=== PATIENT | female | born 1975 | race Caucasian/White ===

== ENCOUNTER → 2016-10-10 | Outpatient (CLI) | payer OTHER ==
--- NOTE | 2016-10-11 15:07 | MAMMOGRAPHY REPORT ---
BILATERAL DIGITAL DIAGNOSTIC MAMMOGRAM TOMOSYNTHESIS WITH CAD AND TARGETED BILATERAL ULTRASOUND: 10/10 CLINICAL HISTORY: 41-year-old woman presents with a new palpable lump in the lower inner quadrant of the left breast. Also bilateral screening exam. TECHNIQUE: Bilateral CC and MLO 2-D digital and tomosynthesis images, spot magnification CC and ML v iews of each breast were obtained. Current study was also evaluated with a Computer Aided Detection (CAD) system. COMPARISON: Comparison is made to exam dated: 08/24/2008 mammogram. BREAST COMPOSITION: The tissue of both breasts is heterogeneously dense, which may obscure small ma sses. FINDINGS: A triangle skin palpable marker overlies a lower inner quadrant of the left breast, denoti ng the new palpable lump pointed out by the patient. In the area of concern, there is a new ovoid d ense mass with indistinct and obscured borders. It measures approximately 2.3 x 1.5 x 1.4 cm. Near the anterior inferior aspect of this mass there are clustered microcalcifications for which additio nal spot magnification views were obtained. With spot magnification, there is a cluster of amorphou s microcalcifications measuring 9 mm in maximum dimension. It is unclear if the calcifications are associated with a mass or simply located adjacent to the mass. They are new comparing to the prior 2008 mammogram. No other suspicious mass, focal area of architectural distortion or other microcalc ifications are identified within the left breast. There is a 9 mm reniform mass with feeding vessel in the upper outer quadrant of the left breast for which additional sonographic characterization wa s performed. There is a 7 mm nodular asymmetry with 2 associated punctate calcifications in the upper outer poste rior right breast. Additional spot magnification views were performed in this area and the nodular asymmetry effaces. There are a few other punctate microcalcifications scattered in the right breast . No suspicious grouping or cluster is currently identified. No suspicious mass or focal area of a rchitectural distortion. Targeted ultrasound was performed in the area of palpable lump pointed out by the patient (in the 9: 00 left breast, 2 cm from the nipple). In the area of concern, there is a lobulated, partially circ umscribed hypoechoic solid-appearing mass that measures 17.8 x 11.2 x 12.0 mm. There is an adjacent /abutting lobulated hypoechoic mass measuring 8.5 x 4.3 x 6.4 mm. In the left 2:00 breast, 6 cm fro m the nipple, a morphologically normal lymph node is seen with a thin cortex measuring 1.4 mm. No s uspicious left axillary lymphadenopathy is identified. In the right 8:00 breast, there is a lobulated anechoic benign simple cyst measuring 7.4 mm. The 10 :00 right breast, 1 cm from the nipple, there is a macrolobulated isoechoic solid-appearing mass kaitlyn suring 9.3 x 5.3 x 10.5 mm, with 2 internal anechoic cystic areas. This could represent an intraduc skyler or intracystic mass and definitive characterization with tissue sampling is recommended. There are 2 adjacent tubular ovoid hypoechoic masses in the 9:00 periareolar right breast, the largest of which measures 5.8 mm. This could represent focal fibrocystic changes or an intraductal process. IMPRESSION: ACR BI-RADS CATEGORY 4B: INTERMEDIATE SUSPICION FOR MALIGNANCY, TARGETED ULTRASOUND ACR BI-RADS CATEGORY 4B: INTERMEDIATE SUSPICION FOR MALIGNANCY 1. Left breast stereotactic guided biopsy is recommend for 9 mm cluster of amorphous microcalcifica tions in the lower inner anterior breast. 2. Ultrasound-guided core needle biopsy is recommended for an indeterminate solid palpable mass in the 9:00 left breast, 2 cm from the nipple, measuring up to 18 mm. 3. Ultrasound-guided core needle biopsy is also recommended for a microlobulated isoechoic solid-ap pearing mass in the 10:00 right breast, 1 cm from the nipple, measuring up to 10.5 mm. 4. There are 2 adjacent lobulated hypoechoic solid versus cystic masses in the 9:00 periareolar rig ht breast identified on ultrasound and 2 microcalcifications and associated nodular asymmetry in the upper outer posterior right breast identified mammographically, that are more benign in appearance when comparing to the above described masses and calcifications for which biopsy was recommended. T herefore, further recommendations will be made regarding these findings after pathology results are available from the 3 above biopsies. 5. No suspicious left axillary lymphadenopathy is identified on ultrasound. These results and recommendations were discussed with the patient at the time of the exam. She tent atively scheduled the biopsies prior to leaving our department. Approximately 10% of breast cancers are not detected with mammography. A negative mammographic repor t should not delay biopsy if a clinically suggestive mass is present. Katy Hennessy M.D. ay/:10/10/2016 15:12:23 Director Athletic: Leilani Carballo, [facility] letter sent: Abnormal 10/10 BI-RADS Code: ACR BI-RADS Category 4B: Intermediate Suspicion For Malignancy Ultrasound BI-RADS: AC R BI-RADS Category 4B: Intermediate Suspicion For Malignancy
== END | disposition home or self-care (01) ==
LOC: C.MAMM 12:50
PROVIDERS: ATTEND Physician Assistant
DX: N63 Unspecified lump in breast (principal); R92.0 Mammographic microcalcification found on diagnostic imaging of breast

== ENCOUNTER → 2016-10-17 | Outpatient (CLI) | payer OTHER ==
--- NOTE | 2016-10-17 12:37 | Discharge Instructions ---
Discharge Instructions Procedure Procedure Date: Oct 17, 2016. Reason for visit: Left Calcs/Us Core 2 Masses. Discharge Discharge Date: Oct 17, 2016. Discharge Diagnosis: post left stereotactic guided biopsy and bilateral ultrasound guided core biopsies Instructions Activity Recommendations: Additional Limitations (see below) Return to School/Work: no limitations Recommended Home Diet: No Limitations Provider Instructions: ACTIVITY RECOMMENDATIONS: * No lifting, pushing, pulling or exercising the affected side for three days. RETURN TO SCHOOL/WORK: * You may return to work/school after the procedure, but do not perform any strenuous activities for 24 to 48 hours. MEDICATIONS: * Tylenol (two 325 mg) every four to six hours if needed for mild pain (if not allergic to Tylenol). DIET: * Resume previous diet. SPECIAL CARE INSTRUCTIONS: * Keep biopsy site dry for 24 hours. May shower after 24 hours, but do not soak (bathe) incision. * May remove Tegaderm (plastic patch) tomorrow AFTER showering. * Leave the steri-strips on for one week. Allow the steri-strips to fall off by themselves. If not off after one week, you may remove them. You may place a Bandaid crosswise over the strips, if desired. * Apply ice 10 minutes on and 10 minutes off as needed. * Wear a bra at bedtime to sleep more comfortably for 2-3 days. * Your referring physician should have the results after approximately 5 to 7 business days. * Call for unusual bleeding, fever, drainage, etc or if you have any questions call [phone] during normal business hours or after hours call Dr Hennessy, . FOLLOW UP VISIT: Follow-up with Referring Physician as scheduled. Wilton Wiley Recommendations: Call your doctor if: * Temperature above 101 degrees * Pain not relieved by pain medicine ordered * There is increased drainage or redness from any incision * You have any unanswered questions or concerns. Your Doctors Instructions noted above were prepared by provider Katy Hennessy. Patient Signature Section: Patient Instructions Signature Page Celena Cat Patient (or Guardian) Signature/Date: I have read and understand the instructions given to me by my caregivers. Caregiver/RN/Doctor Signature/Date: The above-named patient and/or guardian has received patient instructions on this date. + Original Patient Signature Page (only) stays with chart. Please make copy for patient.
--- NOTE | 2016-10-17 16:06 | MAMMOGRAPHY REPORT ---
THIS REPORT HAS BEEN AMENDED. STEREOTACTIC GUIDED BIOPSY LEFT BREAST: 10/17/2016 CLINICAL HISTORY: New indeterminate clustered microcalcifications in the lower inner quadrant of the left breast. Unclear if they are associated with a palpable mass also seen in the left lower inner quadrant. Patient presents for stereotactic guided biopsy of the microcalcifications. At the same time ultrasound guided core biopsy was performed of the palpable mass in the left 9:00 breast and o f an indeterminate solid appearing mass in the 10:00 right breast. COMPARISON: Comparison is made to exams dated: 10/10/2016 ultrasound, 10/10/2016 mammogram - [facility] [address], and 08/24/2008 mammogram. PATIENT CONSENT: After explaining the risks, benefits and alternatives of the procedure to the patie nt, informed consent was obtained both verbally and in writing. Specific risks include: Bleeding, i nfection, puncture of adjacent structure, nontarget biopsy, sampling error, metal allergy and medica tion reaction. PROCEDURE DESCRIPTION: A time-out was performed and the left breast was confirmed as the site of bio psy. The patient was placed prone on the stereotactic biopsy table and the breast was placed in CC f rom below compression. A retail assistant image was obtained that demonstrated the clustered microcalcification s in question. They are amenable to sterotactic biopsy. Then +15 and -15 stereo pair images were obtained. The calcifications were targeted utilizing the coordinates obtained by the computer. The skin was prepped with Betadine. 1% Lidocaine with and without epinipherine was administered as local anesthesia. A small skin incision was made. Through the incision, the needle was inserted to the d epth determined by the computer. 10 samples were obtained using a [employer] 9-gauge vacuum-assiste d biopsy device. The specimen radiograph demonstrated a grouping of treasury representative microcalcificatio ns, therefore, a metallic marker was placed at the biopsy site. There was no immediate complication. Hemostasis was achieved after several minutes of manual compression. The samples were sent to path ology in 2 appropriately labeled containers, "with calcifications", and "remainder of tissue". All of the samples were obtained from the same single biopsy site. Postprocedure CC and ML views of the left breast demonstrate a new dumbbell-shaped metallic biopsy m arker adjacent to a new ribbon-shaped metallic biopsy marker and no significant hematoma at the site of the biopsied clustered microcalcifications. The ribbon-shaped marker was placed after stereotac tic biopsy, in which ultrasound-guided core biopsy was performed of a solid appearing mass in the 9: 00 left breast. IMPRESSION: STEREOTACTIC GUIDED BIOPSY Status post left breast stereotactic biopsy of clustered microcalcifications in the lower inner quad rant, with biopsy marker placed at the site. Pending pathology results of the bilateral breast biopsies performed today, would tentatively plan o n a follow-up right diagnostic mammogram including spot magnification views in 6 months. The patient will receive notification of the biopsy results from her referring physician. Katy Hennessy M.D. ay/:10/17/2016 12:55:10 [employer] Instrument Repairer: Heather KENDALL)([place]), [facility] AMENDMENT: 10/28/2016 Katy Hennessy M.D. Pathology results from the left breast stereotactic guided biopsy of clustered microcalcifications i n the lower inner anterior breast yielded a cyst with associated inflammation consistent with ruptur e. Microcalcifications present. Negative for in situ and invasive carcinoma. In the adjacent tiss ue not containing calcifications, benign breast tissue was identified with inflammation. The patholo gy results are concordant with the imaging appearance. Recommend follow-up diagnostic mammograms wi th possible ultrasound in the left breast in 6 months to ensure stability. Right diagnostic mammogr am should also be performed at that time to ensure stability of 2 microcalcifications with associate d nodularity in the upper outer posterior aspect of the right breast, and sonographic findings in th e 10:00 axis.
--- NOTE | 2016-10-17 16:06 | MAMMOGRAPHY REPORT ---
BILATERAL DIGITAL DIAGNOSTIC MAMMOGRAM TOMOSYNTHESIS: 10/17/2016 CLINICAL HISTORY: Status post bilateral ultrasound guided core needle biopsy and left breast stereot actic guided biopsy. Please refer to the reports from left breast stereotactic guided biopsy and left breast ultrasound g uided core biopsy performed at the same time for full detail. IMPRESSION: POST PROCEDURE IMAGING FOR MARKER PLACEMENT Please refer to the reports from left breast stereotactic guided biopsy and left breast ultrasound g uided core biopsy performed at the same time for full detail. Approximately 10% of breast cancers are not detected with mammography. A negative mammographic repor t should not delay biopsy if a clinically suggestive mass is present. Katy Hennessy M.D. ay/:10/17/2016 12:39:02 Strip Cleaner: Heather KENDALL)([place]), [facility] BI-RADS Code: Post Procedure Imaging For Marker Placement
--- NOTE | 2016-10-18 15:00 | MAMMOGRAPHY REPORT ---
ULTRASOUND GUIDED BIOPSY: 10/17/2016 CLINICAL HISTORY: 41-year-old woman with indeterminate masses in the 10:00 right breast and 9:00 lef t breast. The 9:00 mass is also palpable and tender. Patient presents for ultrasound-guided core n eedle biopsy in each breast. During the same appointment, a stereotactic biopsy of indeterminate cl ustered microcalcifications is also performed in the left breast. Please refer to the report from left breast ultrasound-guided core biopsy performed at the same time for full detail. IMPRESSION: ULTRASOUND GUIDED BIOPSY Please refer to the report from left breast ultrasound-guided core biopsy performed at the same time for full detail. Katy Hennessy M.D. ay/:10/17/2016 20:53:21 Attending Technologist: Dr. Katy Hennessy, [facility] Analytical Chemistry Teacher: Heather RAYMOND(R)(M), [facility]
--- NOTE | 2016-10-18 15:00 | MAMMOGRAPHY REPORT ---
THIS REPORT HAS BEEN AMENDED. ULTRASOUND GUIDED BIOPSY LEFT BREAST: 10/17/2016 CLINICAL HISTORY: 41-year-old woman presented with a palpable lump in the 9:00 left breast. She was found to have an indeterminate solid mass in the area of palpable concern, left breast microcalcifi cations near the palpable mass and an indeterminate solid mass in the 10:00 right breast. She prese nts for bilateral ultrasound-guided core biopsy of the solid masses and stereotactic biopsy of the l eft breast microcalcifications. COMPARISON: Comparison is made to exams dated: 10/10/2016 ultrasound, 10/10/2016 mammogram - [facility], and 08/24/2008 mammogram. PATIENT CONSENT: The procedure, risks and benefits were discussed with the patient and informed writ ten consent was obtained. Specific risks to this procedure include: bleeding, infection, puncture of adjacent structure, nontarget biopsy, metal allergy, sampling error and medication reaction. PROCEDURE DESCRIPTION: First targeted ultrasound was performed in the area of the solid palpable mas s in the 9:00 left breast and indeterminate solid-appearing mass in the 10:00 right breast. The mas s in the 9:00 left breast is again identified but there are air bubbles and a linear metallic biopsy marker confirming that the microcalcifications were within and/or immediately adjacent to this mass . Nevertheless it is indeterminate and further evaluation with tissue sampling is recommended to co nfirm adequate tissue sampling. Please see below. The microlobulated isoechoic solid-appearing mas s in the 10:00 right breast is also again seen and amenable to biopsy. Please see below. A time out was performed and both breasts were agreed as sites of biopsy. First, the skin of the le ft breast was prepped and draped in the usual sterile fashion. The solid mass in the 9:00 left breas t was chosen as the target for biopsy. Subcutaneous and intraparenchymal 1% buffered lidocaine was a dministered as local anesthesia. A skin incision was made. Through the incision, 3 samples were jorge en with a 14 gauge Achieve biopsy device. A metallic marker was placed at the biopsy site. Hemostasi s was achieved after manual compression. The patient tolerated the procedure well and there was no i mmediate complication. Then the microlobulated solid mass in the 10:00 right breast was identified and targeted for biopsy. The skin of the right breast was prepped and draped in the usual sterile fashion. Subcutaneous and intraparenchymal 1% buffered lidocaine was administered as local anesthesia. A skin incision was ma de. Through the incision, 3 samples were taken with a 14 gauge Achieve biopsy device. A metallic ma rker was placed at the biopsy site. Hemostasis was achieved after manual compression. The patient to lerated the procedure well and there was no immediate complication. All of the samples were then s ent to the pathology department in appropriately labeled containers. Postprocedure CC and ML tomosynthesis views of each breast were obtained. There are 2 new metallic biopsy markers in the approximate 9:00 left breast. A dumbbell shaped metallic biopsy marker from s tereotactic biopsy, and a ribbon-shaped biopsy marker from the ultrasound-guided core biopsy. No si gnificant hematoma is seen. The calcifications were either located adjacent to or associated with t he mass which was palpable. A new wing-shaped biopsy marker is seen in the 10:00 right breast. No significant hematoma. Pending pathology results, would recommend follow-up diagnostic right mammograms including spot magn ification views to ensure stability of 2 microcalcifications in the upper outer posterior breast. IMPRESSION: ULTRASOUND GUIDED BIOPSY Status post left breast stereotactic biopsy and bilateral ultrasound-guided core biopsy, as above. Pending pathology results in both breasts, follow-up diagnostic right mammograms and possible ultras ound is recommended to ensure stability of other findings in 6 months. The patient will receive notification of the biopsy results from her referring physician. Katy Hennessy M.D. ay/:10/17/2016 21:01:56 Attending Technologist: Dr. Katy Hennessy, [facility] Senior Support Analyst: Heather Boykin RT(R)(M), [facility] AMENDMENT: 10/28/2016 Katy Hennessy M.D. Pathology results for ultrasound-guided core needle biopsy of a solid palpable mass in the 9:00 left breast yielded an apocrine cyst with abundant inflammation. Negative for in situ and invasive carc inoma. Pathology results of an isoechoic mass in the 10:00 right breast yielded benign breast tissue. Nega tive for in situ and invasive carcinoma. In the comment section describing the right lesion, "in 2 cores there is a somewhat localized area of increased number of ducts and lobules, some of which are dilated and unfolding. There is no hyperplasia, flat epithelial atypia or papilloma. However, thi s area is somewhat distinct from the surrounding less cellular breast tissue and might conceivably r epresent the lesion". The pathology results from both the right and left ultrasound-guided core biopsies are compared with the imaging appearance. Follow-up bilateral diagnostic mammograms and repeat targeted ultrasound i n at least the 10:00 right breast is recommended to ensure stability in 6 months.
== END | disposition home or self-care (01) ==
LOC: C.MAMM 10:37
PROVIDERS: ATTEND Physician Assistant
DX: R92.0 Mammographic microcalcification found on diagnostic imaging of breast (principal); N63 Unspecified lump in breast; N60.02 Solitary cyst of left breast